=== PATIENT | female | born 1965 ===

== ENCOUNTER 2021-08-16 17:56 | Emergency (ER) | payer MEDICAID ==
[~2021-08-16] VITALS: Ht 167.6 cm; Wt 75.0 kg
[2021-08-16 18:08] VITALS: BP 176/86
[2021-08-16] MEDS ORDERED: ASPIRIN 81MG TABLET PO ONE (19:00)
[2021-08-16 19:32] LABS: CHLORIDE 104 mEq/L (98-107)
[2021-08-16 19:35] LABS: ETHANOL BLOOD < 10 mg/dL
[2021-08-16 19:38] LABS: BASOPHILS % 0.4 % (0.0-2.0); EOSINOPHILS % 0.8 % (0.0-5.0); HEMATOCRIT. 41.3 % (36.0-48.0); HEMOGLOBIN. 14.2 g/dL (12.0-16.0); LYMPHOCYTES % 17.6 % (20.0-50.0); MEAN CORPUSCULAR VOLUME 90.3 fL (81.0-99.0); MEAN PLATELET VOLUME 7.7 fl (7.4-10.4); MONOCYTES % 8.7 % (2.0-8.0); NEUTROPHILS % 72.5 % (40.0-76.0); PLATELET 340 x1000/uL (130-400); RED BLOOD CELL COUNT 4.58 mill/uL (4.2-5.4); RED CELL DISTRIBUTION WIDTH 11.9 % (11.6-14.6)
[2021-08-16] MEDS ORDERED: ASPI-1497 MT (22:50)
== END 2021-08-16 23:08 | disposition home or self-care (01) ==
LOC: ER 17:56
DX: R00.2 Palpitations (principal); I10 Essential (primary) hypertension; E78.00 Pure hypercholesterolemia, unspecified; Z79.82 Long term (current) use of aspirin
CPT/HCPCS: 36415; 71045; 80053; 80320; 83880; 84484; 85025; 93005; 99285; G0480